=== PATIENT | female | born 1985 | race Caucasian/White ===

== ENCOUNTER 2017-09-01 07:27 | Observation (INO) | payer OTHER ==
[2017-09-01] MEDS ORDERED: ONDANSETRON 4 MG/2 ML VIAL IVP PRN (07:48)
[2017-09-01] MEDS ORDERED: LR 1,000 ML IV ONE (08:00)
== END 2017-09-01 10:15 | disposition home or self-care (01) ==
LOC: FLD 07:27
PROVIDERS: ADMIT Obstetrics & Gynecology; ATTEND Obstetrics & Gynecology
DX: O99.89 Other specified diseases and conditions complicating pregnancy, childbirth and the puerperium (principal); R11.2 Nausea with vomiting, unspecified; Z3A.21 21 weeks gestation of pregnancy
CPT/HCPCS: G0378 ×2; J2405

== ENCOUNTER 2017-12-07 11:41 | Observation (INO) | payer OTHER ==
[2017-12-08 00:32] LABS: PLATELET COUNT 257 10^3/uL (150-400)
[2017-12-08] MEDS ORDERED: fentaNYL 100 MCG/2 ML INJ ONE (00:44)
[2017-12-08] MEDS ORDERED: fentaNYL 100 MCG/2 ML INJ IVP ONE (00:45)
[2017-12-08 02:01] LABS: PLATELET COUNT 198 10^3/uL (150-400)
--- NOTE | 2017-12-08 02:59 | GHP ---
DATE OF ADMISSION: 12/07/2017 HISTORY OF PRESENT ILLNESS: The patient is a 32-year-old, G1, P0, at 36 weeks gestation with an kira mated due date of 01/06/2018, who presents for acute right lower quadrant pain that she felt abruptly that awoke her from sleep at approximately 2300. The intensity was dramatic, and the patient felt t hat she was unable to even move. The patient called an ambulance to bring her into the hospital. Th e patient was not having any problems previous to going to sleep. 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 The patient felt she had been hydrating well today and not having any unusual contractions. Reported good movement with no leakage of flui d or vaginal bleeding. The patient only experienced mild nausea upon the drive in the ambulance. Th e patient has not been having any dysuria and normal bowel movements. Laboratory tests were drawn in the ambulance approximately 2330. Upon presentation at 2340, the patient was writhing in pain. The pain was steady and intense, primarily centered in the right lower quadrant. Upon initial exam with the RN, the patient had rebound tenderness in the right lower quadrant and was exquisitely tender to touch and also tender wrapping around to the right flank. The patient received IV fluids and upon m y arrival, approximately 0020, the patient was having some improvement of pain, reporting it was stil l 5 to 6/10, but when she was very still, it was less. monitoring was reassuring after the IV fluids, and an obstetric ultrasound was being performed when I arrived. No obvious signs of retropla cental clot behind a right fundal placenta, normal right ovary with normal flow, normal amniotic flui d level. The baby is breech. CBC reveals a slightly elevated white count at 12.6, with neutrophils 75%. A CMP was normal other than elevated alkaline phosphatase at 189. Urinalysis totally normal wi th no hematuria and specific gravity of 1.005. HISTORY: The patient has been followed by [place] nurse midwives, and has had a relatively uncomplicated . The patient has had generally increased tone of her uterus throughout the whole and often has 3-4 contractions a day with more [place]. The patient was seen f or contractions with increased pattern approximately 3 weeks ago. However, these easily abat ed, and the patient did not have any cervical change. The patient also has had episodes of severe ba ck spasms with a history of sciatic problems, left greater than right. LABS: Include maternal blood type O positive with negative antibody screen. RPR nonreacti ve. Rubella immune. Hepatitis B surface antigen negative. HIV negative. Cystic fibrosis, SMA, fra gile X are all negative. TSH was normal. Parvo virus was negative. Varicella was immune. Urinalys is and culture were negative. Pap smear normal. Gonorrhea and chlamydia were negative. Verified te sting was normal with a male . MSAFP was negative. Initial hematocrit was 36% with a drop to 31% at 28 weeks. The patient had an elevated 1-hour Glucola with a normal 3-hour GTT. GBS culture h as not been obtained yet. PAST MEDICAL HISTORY: Mild asthma not requiring medication, attention deficit hyperactivity disorder on no medication. History of chronic UTIs in the past and pyelonephritis in her distant past. The patient has never had kidney stones. PAST SURGICAL HISTORY: Only tonsils removed at the age of 26. 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 FAMILY HISTORY: Positive for kidney stones. CURRENT MEDICATIONS: Only vitamins and daily acyclovir. ALLERGIES: No known drug allergies. SOCIAL HISTORY: The patient is , lives with her , Nilesh, and works as a float nurse at [employer]. Patient is a nonsmoker. No alcohol or drug use. REVIEW OF SYSTEMS: Pertinent positives and negatives noted above. No nausea currently. Normal hist ory of bowel movements with 1 this evening. No blood in her stool. No dysuria and no hematuria. No vaginal bleeding or discharge. PHYSICAL EXAM: GENERAL: The patient is a well-developed, well-nourished white female in moderate di stress with right lower quadrant discomfort. The patient is not having writhing discomfort upon the first that I see her, but she is positioning herself in bed and uncomfortable with certain positions of her right leg. The ultrasound was being performed when I first saw her, and the patient is tender to palpation in the right lower quadrant. VITAL SIGNS: Normal. The patient's blood pressure is 11 4/72. The patient is afebrile. Heart rate in the 80s. ABDOMEN: On abdominal exam, the patient has mild tenderness of her uterus all over, but the patient reports that this is her typical feel throug hout the whole . The patient is acutely tender to touch in the right lower quadrant. She h as no rebound on my exam. The patient is tender to the right flank, but only minimal right CVA tende rness. PELVIC EXAM: Performed on admission by the RN, and she was fingertip long and posterior posi tion. No blood noted vaginally. EXTREMITIES: Nontender and no edema. heart tone monitoring revealed a category 1 tracing in the 130s with accelerations and no decelerations. There was good va riability. Contraction monitoring initially showed uterine irritability. However, these quickly maxwell joycelyn, and the patient was not having any change of intensity of pain with the contractions and no reli ef of pain in between. After approximately 20 minutes on Labor and Delivery, the patient was having a rare contraction. DATA REVIEWED: Pelvic and obstetric ultrasound was performed at the bedside. The baby is in a breec h presentation, has normal ABDULAZIZ of 11 cm. The placenta appears to be grade 3 and is in the right fund al area. No retroplacental clot noted. The right ovary is visualized and has normal blood flow. Th ere are no masses in the right lower quadrant. The liver appears normal. The right kidney shows onl y mild hydronephrosis, and the left kidney is normal. There is no free fluid. They were unable to v isualize the appendix. Laboratory evaluation reveals a CBC with a white count of 12.6, hemoglobin and hematocrit 13.4 and 38 .7, platelets of 257,000, and 75% neutrophils. Metabolic panel is normal with a creatinine of 0.6 wi th alkaline phosphatase 189. Urinalysis shows a spec grav of 1.005, totally normal with no hematuria . ASSESSMENT: Intrauterine at 36 weeks gestation with acute onset of right lower quadrant pa in at approximately 2300. No signs of labor or abruption with a category 1 tracing of the fetus. Po ssibly etiologies of pain are musculoskeletal with possibly intense round ligament pain versus, appen diceal pain, versus right lower urinary tract stone. The patient was reporting improvement of pain, and at approximately 0040 was saying the pain was down to a 3 to 4/10 when she was still. At that ti me, she received 50 mcg of fentanyl. After about half an hour the patient's pain was building again to approximately 5/10 pain with much more tenderness with direct palpation. PLAN: We have repeated labs, which will be 2 hours from the earlier draw to reassess if the white co unt is increasing. If the patient's pain intensifies again, we will pursue a surgical consult to see if an MRI is indicated as the appendix was not visualized on ultrasound. One hour spent with the patient in direct [id number] evaluation and review of labs, ultrasound, and physical symptoms. /[id number]/MODL
== END 2017-12-08 04:00 | disposition home or self-care (01) ==
LOC: UNDOADMOB 11:41 → FLD 11:41
PROVIDERS: ADMIT Advanced Practice Midwife; ATTEND Obstetrics & Gynecology
DX: O99.89 Other specified diseases and conditions complicating pregnancy, childbirth and the puerperium (principal); R10.31 Right lower quadrant pain; Z3A.36 36 weeks gestation of pregnancy
CPT/HCPCS: 59025; 76815; G0378; J3010

== ENCOUNTER 2017-12-21 05:45 | Inpatient (IN) | payer OTHER ==
[2017-12-21] MEDS ORDERED: ceFAZolin 2 GM/DEXTROSE 100 ML IV ONE (05:59)
[2017-12-21] MEDS ORDERED: LR 500 ML IV ONE (05:59)
[2017-12-21] MEDS ORDERED: CITRIC ACID/SODIUM CITRATE 30 ML UDCUP PO ONE ×2 (05:59→07:43)
[2017-12-21] MEDS ORDERED: LR 1,000 ML IV SCH (06:00)
[2017-12-21 06:14] LABS: PLATELET COUNT 237 10^3/uL (150-400)
--- NOTE | 2017-12-21 06:31 | PDGENHP ---
History and Physical - Chief Complaint SROM clear fluid, breech - History of Present Illness 32 G1 at 37w5d with gross ROM of 0445 - clear fluid, still leaking. Feeling a mild occasional contraction. Good FM, no VB. No ssx PIH. care uncomplicated - EFW at 20 weeks = 94% ile. Breech presentation noted 3 d ago, declined ECV. Hx of UTIs - desires catheter removal MARTHA. labs - Rub Imm O pos GBS neg Innatal neg CF/SMA/Frag x neg Failed 1 hr GTT at 133, passed all values 3 hr History Information - Allergies/Home Medication List Allergies/Adverse Reactions: No Known Allergies Allergy (Verified 12/21/17 06:36) Home Medications: Acyclovir 12/21/17 [Last Taken 12/20/17 21:00] Iron 12/21/17 [Last Taken 12/20/17 21:00] 12/21/17 [Last Taken 12/20/17 21:00] Zantac 12/21/17 [Last Taken 12/20/17 21:00] I have personally reviewed and updated: family history, medical history, social history, surgical history Past Medical History: ADHD - no meds in preg. asthma - no meds in past year. hx of UTIs. oral only HSV - Surgical History Additional surgical history: tonsillectomy at age 26 - Family History Additional family history: MGM - hyperthyroid. M - melanoma, recovering ETOH. F - melanoma, ADHD. PGF - pancreatic ca - Social History Smoking Status: Never smoked Alcohol Use: None Drug Use: None Additional social history: to Nilesh,Maria Dolores Ness RN at [employer] Review of Systems Review of Systems: ROS: 10pt was reviewed & negative except for what was stated in HPI & below Physical Exam Physical Exam: Gen - pleasant female, NAD, AO x 3 abd - gravid, soft, NT, Breech presentation by Benitez and confirmed with brief abd US FHR - 135 reactive, Cat 1 toco - uterine irritability grossly ruptured, clear, nitrazine pos per RADAMES nAn Temp Pulse Resp BP Pulse Ox 37.5 C 97 16 117/83 H 96 12/21/17 06:24 12/21/17 06:24 12/21/17 06:24 12/21/17 06:24 12/21/17 06:24 Constitutional: no apparent distress, appears nourished Eyes: PERRL Ears, Nose, Mouth, Throat: moist mucous membranes, hearing normal Cardiovascular: regular rate and rhythym Respiratory: no respiratory distress, no rales or rhonchi Gastrointestinal: normoactive bowel sounds, soft, non-tender abdomen (gravid) Skin: warm, normal color Musculoskeletal: full muscle strength Neurologic: AAOx3 Psychiatric: interacting appropriately Lab Data & Imaging Review 12/21/17 06:00 WBC 10.30 10^3/uL (3.80-9.50) H 12/21/17 06:00 RBC 4.09 10^6/uL (4.18-5.33) L 12/21/17 06:00 Hgb 13.1 g/dL (12.6-16.3) 12/21/17 06:00 Hct 36.9 % (38.0-47.0) L 12/21/17 06:00 MCV 90.2 fL (81.5-99.8) 12/21/17 06:00 MCH 32.0 pg (27.9-34.1) 12/21/17 06:00 MCHC 35.5 g/dL (32.4-36.7) 12/21/17 06:00 RDW 13.2 % (11.5-15.2) 12/21/17 06:00 Plt Count 237 10^3/uL (150-400) 12/21/17 06:00 MPV 10.9 fL (8.7-11.7) 12/21/17 06:00 Neut % (Auto) 70.4 % (39.3-74.2) 12/21/17 06:00 Lymph % (Auto) 18.8 % (15.0-45.0) 12/21/17 06:00 [place] % (Auto) 8.5 % (4.5-13.0) 12/21/17 06:00 Eos % (Auto) 1.6 % (0.6-7.6) 12/21/17 06:00 Baso % (Auto) 0.2 % (0.3-1.7) L 12/21/17 06:00 Nucleat RBC Rel Count 0.0 % (0.0-0.2) 12/21/17 06:00 Absolute Neuts (auto) 7.25 10^3/uL (1.70-6.50) H 12/21/17 06:00 Absolute Lymphs (auto) 1.94 10^3/uL (1.00-3.00) 12/21/17 06:00 Absolute Monos (auto) 0.88 10^3/uL (0.30-0.80) H 12/21/17 06:00 Absolute Eos (auto) 0.16 10^3/uL (0.03-0.40) 12/21/17 06:00 Absolute Basos (auto) 0.02 10^3/uL (0.02-0.10) 12/21/17 06:00 Absolute Nucleated RBC 0.00 10^3/uL (0-0.01) 12/21/17 06:00 Immature Gran % 0.5 % (0.0-1.1) 12/21/17 06:00 Immature Gran # 0.05 10^3/uL (0.00-0.10) 12/21/17 06:00 Assessment & Plan Assessment: 32 G1 at 37w5d by LMP c/w 8 wk US, with SROM at 0445, Breech presentation. B/R/A of C/S discussed. Will proceed shortly, with Dr. Coyne as primary surgeon - he will obtain written consent from patient. Mild anemia. Shahnaz Awad MD, [facility]
[2017-12-21] MEDS ORDERED: METOCLOPRAMIDE 10 MG/2 ML VIAL IVP ONE (07:43)
[2017-12-21] MEDS ORDERED: FAMOTIDINE 20 MG/NACL 50 ML IV ONE (07:43)
--- NOTE | 2017-12-21 07:45 | PDANEPAE ---
ANE History of Present Illness c/s ANE Past Medical History - Cardiovascular History Hx Hypertension: No Hx Arrhythmias: No Hx Chest Pain: No Hx Coronary Artery / Peripheral Vascular Disease: No Hx CHF / Valvular Disease: No Hx Palpitations: No - Pulmonary History Hx COPD: No Hx Asthma/Reactive Airway Disease: No Hx Recent Upper Respiratory Infection: No Hx Oxygen in Use at Home: No Hx Sleep Apnea: No Sleep Apnea Screening Result - Last Documented: Negative - Neurologic History Hx Cerebrovascular Accident: No Hx Seizures: No Hx Dementia: No - Endocrine History Hx Diabetes: No Hypothyroid: No Hyperthyroid: No Obesity: no - Renal History Hx Renal Disorders: No - Liver History Hx Hepatic Disorders: No - Neurological & Psychiatric Hx Hx Neurological and Psychiatric Disorders: No - Chronic Pain History Chronic Pain: No ANE Review of Systems Review of Systems: - Exercise capacity Exercise capacity: >=4 METS ANE Patient History - Allergies Allergies/Adverse Reactions: No Known Allergies Allergy (Verified 12/21/17 06:36) - Home Medications Home medications: home medication list seen and reviewed Home Medications: Acyclovir 12/21/17 [Last Taken 12/20/17 21:00] Iron 12/21/17 [Last Taken 12/20/17 21:00] 12/21/17 [Last Taken 12/20/17 21:00] Zantac 12/21/17 [Last Taken 12/20/17 21:00] - NPO status NPO Since - Liquids (Date): 12/21/17 NPO Since - Liquids (Time): 05:00 NPO Since - Solids (Date): 12/20/17 NPO Since - Solids (Time): 18:00 - Anes Hx Anes Hx: no prior problems - Smoking Hx Smoking Status: Never smoked - Alcohol Use Alcohol Use: None ANE Labs/Vital Signs - Labs Result Diagrams: 12/21/17 06:00 - Vital Signs Blood Pressure: 117/83 Heart Rate: 97 Respiratory Rate: 16 O2 Sat (%): 96 Height: 162.56 cm Weight: 72.121 kg ANE Physical Exam - Airway Mallampati Score: Class 2 Mouth exam: normal dental/mouth exam - Pulmonary Pulmonary: no respiratory distress - Cardiovascular Cardiovascular: regular rate and rhythym - ASA Status ASA Status: II ANE Anesthesia Plan Anesthesia Plan: spinal
[2017-12-21] MEDS ORDERED: PHENYLEPHRINE HCL 100 MCG/ML SYR ONE (07:46)
[2017-12-21] MEDS ORDERED: OXYTOCIN 100 UNITS/10 ML VIAL ONE (07:46)
[2017-12-21] MEDS ORDERED: ONDANSETRON 4 MG/2 ML VIAL ONE ×2 (07:47→08:47)
[2017-12-21] MEDS ORDERED: KETOROLAC 30 MG/1 ML SDV ONE (07:47)
[2017-12-21] MEDS ORDERED: DEXAMETHASONE 4 MG/ML VIAL ONE (07:47)
[2017-12-21] MEDS ORDERED: morphINE PF 5 MG/10 ML INJ ONE (07:49)
[2017-12-21] MEDS ORDERED: AMMONIA AROMATIC 1 EACH AMP IH ONE (07:51)
[2017-12-21] MEDS ORDERED: LIDOCAINE 1% 300 MG/30 ML SDV ONE (07:51)
[2017-12-21] MEDS ORDERED: TERBUTALINE SULFATE 1 MG/ML VIAL ONE (07:51)
[2017-12-21] MEDS ORDERED: OXYTOCIN 10 UNIT/ML VIAL ONE (07:51)
[2017-12-21] MEDS ORDERED: MISOPROSTOL 200 MCG TAB ONE (07:52)
[2017-12-21] MEDS ORDERED: ePHEDrine SULFATE 25 MG/5 ML SYR ONE (08:26)
[2017-12-21] MEDS ORDERED: NALOXONE HCL 0.4 MG/ML INJ IVP PRN (08:59)
[2017-12-21] MEDS ORDERED: PHENYLEPHRINE HCL 100 MCG/ML SYR IVP PRN (08:59)
[2017-12-21] MEDS ORDERED: fentaNYL 100 MCG/2 ML INJ IVP PRN (08:59)
[2017-12-21] MEDS ORDERED: ONDANSETRON 4 MG/2 ML VIAL IVP PRN ×2 (08:59→09:00)
[2017-12-21] MEDS ORDERED: MEPERIDINE 25 MG/0.5 ML AMP IVP PRN (08:59)
--- NOTE | 2017-12-21 09:14 | POSTANESTH ---
Post Anesthetic Evaluation Cardiovascular Status: Normal, Stable Respiratory Status: Normal, Stable Level of Consciousness/Mental Status: Can Participate in Eval Pain Control: Adequate, Prn Tx Ordered Nausea/Vomiting Control: Adequate, Prn Tx Ordered Complications Possibly Related to Anesthesia: None Noted
[2017-12-21] MEDS ORDERED: SIMETHICONE 80 MG TAB CHEW PO PRN (09:51)
--- NOTE | 2017-12-21 09:57 | SUROPNOTE ---
[facility] Operative Report - Surgery Date of Operation: 12/21/17 Surgeon: Lai Coyne Highballer: Amarilis Costello Anesthesiologist: Joseph Tony Anesthesia: Spinal Pre-op Diagnosis: Breech, SROM Post-op Diagnosis: Same Procedure: PLTCS Findings: Normal uterus, tubes and ovaries, vigorous baby boy. Inf/Abcess present in the surg proc area at time of surgery?: No EBL: 700cc Complications: None Specimen(s): Placenta not sent, cord gasses not sent. Technique: The patient was taken to the OR where spinal was placed and anesthesia found to be adequate. The patient was then positioned supine with a leftward tilt and a time-out was performed. She was given weight-based antibiotics prior to skin incision. The abdomen was prepped and draped in normal sterile fashion. A Pfannenstiel skin incision was made with the scalpel and carried down to the fascia. The fascia was incised in the midline and the incision extended bilaterally sharply with scissors. The fascia was dissected off of the underlying rectus muscles superiorly and inferiorly also sharply using scissors. The rectus were in the midline and the peritoneum identified and entered bluntly without issue. The peritoneal incision was extended and the bladder blade was then placed. The vesicouterine junction was identified and a bladder flap was not created. A transverse incision was made with the scalpel in the lower uterine segment and extended with cephalad and caudad traction on the incision edges. The breech was encountered first and brought up to the incision easily. Baby was delivered with standard breech maneuvers quickly and with minimal trauma/traction necessary. The nose and mouth were bulb suctioned. We did wait for 60 seconds before clamping and cutting the cord and then the infant was handed to pediatric staff. Cord blood gases were not sent and the placenta was not sent to pathology. The uterus was then exteriorized and carefully wiped of all debris. The uterus was closed in two layers - the first layer was running with 180 0-vloc and the second a vertical imbricating layer using 0-vicryl. The gutters were cleared of all clots. The uterine incision was reinspected and found to be hemostatic after placement of additional figure of eight sutures of 3-0 vicryl. The uterus was then returned to the abdomen. The fascia was elevated and the rectus muscles and subcutaneous tissues were found to be hemostatic. The fascia was closed with a running 0-Vicryl - single suture. The subcutaneous tissues were irrigated and hemostasis obtained. The subcutaneous space was closed with interrupted sutures of 2-0 vicryl. The skin was closed with 4-0 vloc undyed and then covered with Medipore dressing. The patient tolerated the procedure and was taken to recovery in stable condition. Lap, needle, sponge, and instrument count were announced as correct times two. I was present and scrubbed for the entire case.
[2017-12-21] MEDS: ACETAMINOPHEN 325 MG TAB PO SCH ×3 (13:39→19:50)
[2017-12-21] MEDS: KETOROLAC 30 MG/1 ML SDV IVP SCH ×3 (15:05→20:36)
[2017-12-21] MEDS: DOCUSATE SODIUM 100 MG CAP PO PRN (19:50)
[2017-12-22] MEDS: ACETAMINOPHEN 325 MG TAB PO SCH ×6 (00:28→19:46)
[2017-12-22] MEDS: KETOROLAC 30 MG/1 ML SDV IVP SCH (02:06)
[2017-12-22] MEDS: IBUPROFEN 600 MG TAB PO SCH ×3 (08:12→19:45)
[2017-12-22] MEDS ORDERED: LACTULOSE 20 GM/30 ML UDCUP PO PRN (08:49)
[2017-12-22] MEDS ORDERED: BISACODYL 10 MG SUPP PR PRN (08:49)
[2017-12-22] MEDS ORDERED: POLYETHYLENE GLYCOL 3350 17 GM PKT PO PRN (08:49)
[2017-12-22] MEDS ORDERED: MAGNESIUM HYDROXIDE 30 ML UDCUP PO PRN (08:49)
--- NOTE | 2017-12-22 08:49 | OBPP ---
Progress Note Assessment/Plan: Assessment: [id number] s/p Primary c/s for breech POD#1 anemia Plan: Routine PO care start PO iron support PRN ambulate/rest anticipate d/c home approx 48hrs 12/22/17 11:29 Subjective/ Course: 12/22/17 10:30 Pt doing well, she denies any heavy bleeding or pain not relieved with pain meds. She has been OOB and voiding without difficulty. She denies any CP/SOB. She denies ant flatus or BM at this time. She reports some soreness at incision , but overall feels good. She is - plans to work with today. Objective: 12/22/17 02:25 Patient ABO/Rh O POSITIVE 12/21/17 06:00 Temp Pulse Resp BP Pulse Ox 36.5 C 78 16 107/73 99 12/22/17 05:00 12/22/17 05:00 12/22/17 05:00 12/22/17 05:00 12/22/17 05:00 Uterine Position/Fundal Height: Umbilicus -1, Midline Uterine Tone: Firm Physical Exam - Physical Exam General Appearance: WD/WN, alert, no apparent distress Respiratory: normal breath sounds Cardiac/Chest: regular rate, rhythm Abdomen: non-tender, soft, incision (intact, healing well, bruising present) Extremities: non-tender Skin: normal color, warm/dry Neuro/Psych: alert, normal mood/affect, oriented x 3
[2017-12-22] MEDS: oxyCODONE IR 5 MG TAB PO PRN ×5 (09:34→23:58)
[2017-12-22] MEDS: DOCUSATE SODIUM 100 MG CAP PO PRN (09:34)
[2017-12-22] MEDS: SENNOSIDES/DOCUSATE SODIUM TAB PO SCH ×2 (09:35→19:44)
[2017-12-22] MEDS: FERROUS SULFATE 325 MG TAB PO SCH ×2 (14:14→23:58)
[2017-12-23] MEDS: IBUPROFEN 600 MG TAB PO SCH ×4 (02:07→20:04)
[2017-12-23] MEDS: ACETAMINOPHEN 325 MG TAB PO SCH ×4 (02:08→20:03)
[2017-12-23] MEDS: oxyCODONE IR 5 MG TAB PO PRN ×6 (04:03→22:03)
[2017-12-23] MEDS: FERROUS SULFATE 325 MG TAB PO SCH ×2 (09:16→20:04)
[2017-12-23] MEDS: SENNOSIDES/DOCUSATE SODIUM TAB PO SCH ×2 (09:16→20:04)
--- NOTE | 2017-12-23 10:09 | POSTANESTH ---
Post Anesthetic Evaluation Cardiovascular Status: Normal, Stable Respiratory Status: Normal, Stable Level of Consciousness/Mental Status: Can Participate in Eval, Alert and Oriented Pain Control: Adequate, Prn Tx Ordered Nausea/Vomiting Control: Adequate, Prn Tx Ordered Complications Possibly Related to Anesthesia: None Noted Notes: POD #2 s/p C/S with spinal duramorph. Denies headaches, nausea, vomiting, dizziness, back pain, pruritus. No sensorimotor deficits. Able to ambulate and tolerating PO well. Overall extremely happy with anesthetic experience.
--- NOTE | 2017-12-23 12:26 | OBPP ---
Progress Note Assessment/Plan: Assessment: Day 2 post csection Establishing Anemia Significant Bruising at incision site Plan: 12/23/17 12:26 Continue scheduled ibuprofen and tylenol, oxycode as needed Dr Coyne will be assessing the incision site Discussed importance of iron as well as vitamin Plans to discharge home tomorrow Subjective/ Course: 12/22/17 10:30 Pt doing well, she denies any heavy bleeding or pain not relieved with pain meds. She has been OOB and voiding without difficulty. She denies any CP/SOB. She denies ant flatus or BM at this time. She reports some soreness at incision , but overall feels good. She is - plans to work with today. 12/23/17 12:22 Very tired and sore today. Had a difficult time with pain last night. Had been taking 2 Oxycodone q 4 hours as well as ibuprofen and tylenol. She is going to try to avoid taking it as much as possible during the day. Ambulating without issues. Baby well. Nipples a little sore but intact. Baby latching well. She is passing gas and a small amount of stool Objective: 12/22/17 02:25 Patient ABO/Rh O POSITIVE 12/21/17 06:00 Temp Pulse Resp BP Pulse Ox 36.2 C 90 18 104/70 96 12/23/17 08:00 12/23/17 08:00 12/23/17 08:00 12/23/17 08:00 12/23/17 05:00 Incision, well approximated, significant bruising present at the site. Firm to the touch. No redness, or drainage. Breasts: Nipples intact bilaterally, breasts soft. Producing a lot of colostrum Uterine Position/Fundal Height: At Umbilicus Uterine Tone: Firm
[2017-12-24] MEDS: IBUPROFEN 600 MG TAB PO SCH ×2 (02:05→08:17)
[2017-12-24] MEDS: ACETAMINOPHEN 325 MG TAB PO SCH ×2 (02:05→08:17)
[2017-12-24] MEDS: oxyCODONE IR 5 MG TAB PO PRN ×3 (02:06→10:27)
[2017-12-24] MEDS: SENNOSIDES/DOCUSATE SODIUM TAB PO SCH (08:17)
[2017-12-24] MEDS: FERROUS SULFATE 325 MG TAB PO SCH (08:18)
--- NOTE | 2017-12-24 10:50 | OBGCSDC ---
General Delivery Information - General Info : 1 Para: 1 Abortions: 0 L&D Analgesia/Anesthesia Type: Spinal Admission Date: 12/21/17 Labs: Patient ABO/Rh O POSITIVE 12/21/17 06:00 Hct REJ 12/23/17 02:25 - Hospital Course : 12/22/17 10:30 Pt doing well, she denies any heavy bleeding or pain not relieved with pain meds. She has been OOB and voiding without difficulty. She denies any CP/SOB. She denies ant flatus or BM at this time. She reports some soreness at incision , but overall feels good. She is - plans to work with today. 12/23/17 12:22 Very tired and sore today. Had a difficult time with pain last night. Had been taking 2 Oxycodone q 4 hours as well as ibuprofen and tylenol. She is going to try to avoid taking it as much as possible during the day. Ambulating without issues. Baby well. Nipples a little sore but intact. Baby latching well. She is passing gas and a small amount of stool 12/24/17 10:50 S) Pt doing well, reports min pain and bleeding. she is ambulating and voiding without difficulty. She is . She desires discharge home today. O) VSS, afebrile constitutional: WNWF, A&Ox3 HEENT: normocephalic, atraumatic, supple Heart: RRR, No murmur Chest: CTA-B Abdomen: Soft, nontender Incision: well approximated, healing well with some bruising noted Uterus: Firm at U-2 Lochia: Minimal rubra Perineum: Intact, healing well Extremities: Trace edema, and negative Sammi's sign Neuro: Grossly normal A) 32 year-old S/P Primary LTCS for breech presentation POD#3 P) Discharge home today Continue Pelvic rest x6wks Discussed danger signs (infection, preeclampsia, depression, heavy bleeding, etc) RTO in 2/4/6 weeks 12/24/17 14:16 - Delivery Providers Surgeon: Lai Coyne Data [place]: 01/06/18 Gestational Age: 38 week(s) and 1 day(s) [place] Delivery Date: 12/21/17 Delivery Time: 08:30 Sex of Infant: Male Weight (gm): 3374 kg Score (1 Min): 8 Score (5 Min): 9 Discharge Information - Discharge Information Prescriptions: oxyCODONE IR [Oxycodone Ir (*)] 5 - 10 mg PO Q4HRS PRN #20 tab PRN Reason: Pain, Severe Docusate Sodium [Colace 100 MG (*)] 100 mg PO BID PRN #30 cap PRN Reason: Constipation Ibuprofen [Motrin (*)] 600 mg PO Q6H #40 tab Condition: Good
[2017-12-24 10:53] VITALS: BP 106/72
== END 2017-12-24 13:30 | disposition home or self-care (01) | DRG 788 ==
LOC: FLD 05:45 → FOB 10:42
PROVIDERS: ADMIT Hospitalist; ATTEND Hospitalist
PROC: 10D00Z1 Extraction of Products of Conception, Low, Open Approach (ICD-10-PCS; principal; 2017-12-21)
DX: O32.1XX0 Maternal care for breech presentation, not applicable or unspecified (principal); Z87.440 Personal history of urinary (tract) infections; Z3A.38 38 weeks gestation of pregnancy; Z37.0 Single live birth
CPT/HCPCS: J0690; J1100; J1885; J2274; J2370; J2405; J2590; J2765; J3105

== ENCOUNTER → 2018-08-26 | Outpatient (CLI) | payer OTHER | LOC: FIMAGING 09:58 ==

== ENCOUNTER → 2018-08-29 | Outpatient (CLI) | payer OTHER | LOC: FIMAGING 08:53 ==